=== PATIENT | female | born 1955 | race Caucasian/White ===

== ENCOUNTER 2020-09-12 12:48 | Emergency (ER) | payer MEDICARE, OTHER ==
[~2020-09-12] VITALS: Ht 160 cm; Wt 90.0 kg
[2020-09-12] MEDS ORDERED: LIDOcaine 1% W/epiNEPHrine 1:100,000 20ml vial IJ ONE (13:10)
[2020-09-12] MEDS ORDERED: LIDOcaine 1.5% w/epinephrine 1:200,000 5ml ampul IJ ONE (13:10)
[2020-09-12 13:39] VITALS: BP 147/84
== END 2020-09-12 13:36 | disposition home or self-care (01) ==
LOC: ER 12:49
DX: S81.811A Laceration without foreign body, right lower leg, initial encounter (principal); E11.9 Type 2 diabetes mellitus without complications; Z90.49 Acquired absence of other specified parts of digestive tract; X58.XXXA Exposure to other specified factors, initial encounter; Y93.89 Activity, other specified; Y92.89 Other specified places as the place of occurrence of the external cause; Y99.8 Other external cause status
CPT/HCPCS: 12001; 99282

== ENCOUNTER 2022-12-25 12:31 | Outpatient (CLI) | payer MEDICARE, OTHER | END 2022-12-25 23:59 | disposition home or self-care (01) | LOC: CARD DIAG 12:31 | PROVIDERS: ATTEND Internal Medicine Cardiovascular Disease | DX: I08.8 Other rheumatic multiple valve diseases (principal); R06.02 Shortness of breath | CPT/HCPCS: 93306 ==